=== PATIENT | male | born 1955 | race Caucasian/White ===

== ENCOUNTER 2018-06-07 10:17 | Emergency (ER) | payer OTHER ==
[2018-06-07 11:35] VITALS: BP 100/62
--- NOTE | 2018-06-07 11:48 | UC ---
Lower Extremity/Ankle HPI - HPI Summary HPI Summary: 62 yo male with PMH of COPD, HLD, CAD/CHF, gout GERD who states he slipped on a rubber mat at home about 10 days ago, he fell on knee and sprained knee again several times afterwards. c/o swelling and pain on right ankle and foot but is able to ambulate. - History of Current Complaint Chief Complaint: UCLowerExtremity Stated Complaint: RIGHT FOOT INJURY Time Seen by Provider: 06/07/18 11:34 Hx Obtained From: Patient Onset/Duration: Sudden Onset, Lasting Days Severity Initially: Moderate Severity Currently: Severe Pain Intensity: 8 Aggravating Factor(s): Standing, Ambulation Alleviating Factor(s): Rest, Elevation Able to Bear Weight: Yes - Risk Factors Gout Risk Factors: Age Over 40, Male, Hypertension DVT Risk Factors: Smoking Septic Arthritis Risk Factor: Negative - Allergies/Home Medications Allergies/Adverse Reactions: Allergies Allergy/AdvReac Type Severity Reaction Status Date / Time No Known Allergies Allergy Verified 06/07/18 11:16 Home Medications: Home Medications Colchicine* [Colcrys*] 0.6 mg PO DAILY PRN 06/07/18 [History Confirmed 06/07/18] PMH/Surg Hx/FS Hx/Imm Hx Endocrine History: Dyslipidemia Cardiovascular History: Cardiac Disease, Hypertension, Congestive Heart Failure Respiratory History: COPD GI/ History: Gastroesophageal Reflux - Surgical History Surgical History: Yes Surgery Procedure, Year, and Place: 04- cardiac stent. TRACHEOSTOMY-AGE [age] due to MUMPS, measles, varicella. TONSILLECTOMY - Family History Known Family History: Positive: Diabetes - Social History Alcohol Use: Rare Substance Use Type: Excessive Caffeine Smoking Status (MU): Heavy Every Day Tobacco Smoker Type: Cigarettes Amount Used/How Often: 2 pck per day Length of Time of Smoking/Using Tobacco: 44 yrs Household Exposure Type: Cigarettes Review of Systems All Other Systems Reviewed And Are Negative: Yes Musculoskeletal: Positive: Arthralgia, Myalgia Physical Exam Triage Information Reviewed: Yes Appearance: Well-Appearing, No Pain Distress, Well-Nourished Vital Signs: Initial Vital Signs Temp 97.5 F 06/07/18 11:28 Pulse 67 06/07/18 11:28 Resp 20 06/07/18 11:28 BP 100/62 06/07/18 11:28 Pulse Ox 96 06/07/18 11:28 Vital Signs Reviewed: Yes Eyes: Positive: Conjunctiva Clear ENT: Positive: Hearing grossly normal Neck: Positive: Supple, Nontender, No Lymphadenopathy Respiratory: Positive: Chest non-tender, Lungs clear, Normal breath sounds Cardiovascular: Positive: RRR, No Murmur, Pulses Normal, Brisk Capillary Refill Abdomen Description: Positive: Nontender, No Organomegaly, Soft Musculoskeletal: Positive: Strength Intact, ROM Intact, Edema @ Neurological: Positive: Alert Psychological Exam: Normal Skin: Positive: Rashes, Other - toenail dystrophy, scaling of foot skin with hyperkeratosis Lower Extremity Course/Dx - Course Course Of Treatment: xray of right ankle negative for fracture, ankle sprain by PE, CHEN, instructed to RICE, ibuprofen PRN with food. F/u with PCP as scheduled. - Differential Dx/Diagnosis Provider Diagnoses: ankle sprain Discharge - Sign-Out/Discharge Documenting (check all that apply): Patient Departure All imaging exams completed and their final reports reviewed: Yes - Discharge Plan Condition: Stable Disposition: HOME Patient Education Materials: R.I.C.E. Treatment (ED), Ankle Sprain (ED), Ibuprofen (By mouth) Referrals: Rui Mcfarland MD [Primary Care Provider] - - Billing Disposition and Condition Condition: STABLE Disposition: Home
== END 2018-06-07 12:30 | disposition home or self-care (01) ==
LOC: UCCORT 10:17
DX: S93.401A Sprain of unspecified ligament of right ankle, initial encounter (principal); W01.0XXA Fall on same level from slipping, tripping and stumbling without subsequent striking against object, initial encounter; Y92.9 Unspecified place or not applicable; M10.9 Gout, unspecified; I10 Essential (primary) hypertension; F17.210 Nicotine dependence, cigarettes, uncomplicated
CPT/HCPCS: 99212; G0463